=== PATIENT | female | born 1985 | race Two or more races ===

== ENCOUNTER 2022-11-18 18:57 | Emergency (ER) | payer MEDICAID, OTHER ==
[~2022-11-18] VITALS: Ht 167.6 cm; Wt 62.7 kg
[2022-11-18 19:15] VITALS: BP 110/70; PULSE 94; RESP 18; O2SAT 97
== END 2022-11-18 22:05 | disposition left against medical advice (07) ==
LOC: ER 19:00
DX: M79.89 Other specified soft tissue disorders (principal); R20.0 Anesthesia of skin; Z53.21 Procedure and treatment not carried out due to patient leaving prior to being seen by health care provider
CPT/HCPCS: 93971